=== PATIENT | male | born 1940 | race Caucasian/White ===

== ENCOUNTER → 2017-06-06 | Outpatient (CLI) | payer MEDICARE, BC ==
[2017-06-06 15:40] LABS: ADD MAN DIFF? NO
[2017-06-06 15:42] LABS: BASO # 0.1 x10^3/uL (0.0-0.2); BASO % 1 % (0-3); EOS # 0.4 x10^3/uL (0.0-0.7); EOS % 5 % (0-3); HEMATOCRIT 44.2 % (39.0-53.0); HEMOGLOBIN 14.8 g/dL (13.0-17.5); LYMPH # 2.5 x10^3/uL (1.0-4.8); LYMPH % 37 % (24-48); MEAN CORPUSCULAR HEMOGLOBIN 30 pg (25-35); MEAN CORPUSCULAR HGB CONC 34 g/dL (31-37); MEAN CORPUSCULAR VOLUME 89 fL (79-100); MONO # 1.1 x10^3/uL (0.0-1.1); MONO % 16 % (0-9); NEUT # 2.8 x10^3uL (1.8-7.7); NEUT % 41 % (31-73); PLATELET COUNT 151 x10^3/uL (140-400); RED BLOOD COUNT 4.97 x10^6/uL (4.30-5.70); RED CELL DISTRIBUTION WIDTH 14.3 % (11.5-14.5); WHITE BLOOD COUNT 6.8 x10^3/uL (4.0-11.0)
[2017-06-06 16:11] LABS: ALBUMIN 3.5 g/dL (3.4-5.0); ALBUMIN/GLOBULIN RATIO 0.9 (1.0-1.7); ALK PHOS 51 U/L (46-116); ALT (SGPT) 30 U/L (16-63); ANION GAP 11 (6-14); AST (SGOT) 20 U/L (15-37); BLOOD UREA NITROGEN 17 mg/dL (8-26); BUN/CREATININE RATIO 17 (6-20); CALCIUM 9.1 mg/dL (8.5-10.1); CARBON DIOXIDE 26 mmol/L (21-32); CHLORIDE 103 mmol/L (98-107); GFR 72.8; GLUCOSE 146 mg/dL (70-99); POTASSIUM 4.1 mmol/L (3.5-5.1); SODIUM 140 mmol/L (136-145); TOTAL BILIRUBIN 0.5 mg/dL (0.2-1.0); TOTAL PROTEIN 7.4 g/dL (6.4-8.2)
[2017-06-07 03:15] LABS: MRSA BY PCR Negative (Negative)
[2017-06-08 02:18] LABS: HEMOGLOBIN A1C 6.2 % (4.8-5.6)
== END | disposition home or self-care (01) ==
LOC: SURGPAT 13:29
DX: Z01.818 Encounter for other preprocedural examination (principal); I10 Essential (primary) hypertension
CPT/HCPCS: 36415; 80053; 83036; 85025; 87641; 93005

== ENCOUNTER 2017-06-20 07:28 | Observation (INO) | payer MEDICARE, BC ==
[2017-06-13] MEDS: BACITRACIN 50,000 UNIT in IV NORMAL SALINE 1000ML BAG 1,000 ML IRR (06:00)
[~2017-06-20 07:28] MED LIST: HYDROmorphone 2 MG/ML VIAL IV; IV RINGERS,LACTATED 1000ML 1,000 ML IV; LIDOCAINE 1% PF 2 ML VIAL. ID; MORPHINE SULFATE 2 MG/ML DISP.SYRIN. IV; PROCHLORPERAZINE 10 MG/2 ML VIAL. IV; ceFAZolin 2GM PREMIX 2 GM/50 ML BAG IV; fentaNYL PF VIAL 100 MCG/2 ML VIAL IV
[2017-06-20] MEDS: IV RINGERS,LACTATED 1000ML 1,000 ML IV ×2 (08:20)
[2017-06-20] MEDS ORDERED: MINERAL OIL/PETROLATUM,WHITE OPHTH OINT 3.5GM TUBE. ×2 (08:27)
[2017-06-20] MEDS ORDERED: DEXAMETHASONE SOD PHOS 20 MG/5 ML VIAL. ×2 (08:27)
[2017-06-20] MEDS ORDERED: REMIFENTANIL 2 MG VIAL. IV ×2 (08:27)
[2017-06-20] MEDS ORDERED: ONDANSETRON PF 4 MG/2 ML VIAL. ×2 (08:27)
[2017-06-20] MEDS ORDERED: MIDAZOLAM HCL/PF 2 MG/2 ML VIAL. ×2 (08:27)
[2017-06-20] MEDS ORDERED: fentaNYL PF VIAL 250 MCG/5 ML VIAL ×2 (08:27)
[2017-06-20] MEDS ORDERED: PROPOFOL 0 ML IV ×2 (08:27)
[2017-06-20] MEDS ORDERED: LIDOCAINE 2% PF Vial for OR 5 ML VIAL. ×2 (08:27)
[2017-06-20] MEDS ORDERED: PROPOFOL 20 ML IV ×2 (08:28)
[2017-06-20] MEDS ORDERED: DESFLURANE > 120 MINUTES IH ×2 (08:28)
[2017-06-20] MEDS ORDERED: ROCURONIUM 50 MG/5 ML VIAL. ×2 (08:30)
[2017-06-20] MEDS ORDERED: 0.9 % SODIUM CHLORIDE 50 ML VIAL. IJ ×4 (08:32→11:30)
[2017-06-20] MEDS ORDERED: ePHEDrine PF IN SALINE 50 MG/5 ML DISP.SYRIN IV (08:59)
[2017-06-20] MEDS: THROMBIN TOPICAL 20,000 UNIT SPRAY.SYRN KIT TP ×2 (09:41)
[2017-06-20] MEDS: BACITRACIN 50,000 UNIT in IV NORMAL SALINE 1000ML BAG 1,000 ML IRR (09:41)
[2017-06-20] MEDS: BUPIVAC MPF-EPI 0.75%-1:200000 30 ML VIAL. ×2 (09:41)
[2017-06-20] MEDS: KETOROLAC 60 MG/2 ML INJ FOR OR. ×2 (09:41)
[2017-06-20] MEDS: GELATIN SPONGE SIZE 100. ×2 (09:41)
[2017-06-20] MEDS ORDERED: PHENYLEPHRINE 10 MG/ML VIAL. ×4 (09:45)
[2017-06-20] MEDS ORDERED: PHENYLEPHRINE in 0.9% NACL PF 1 MG/10 ML SYRINGE. IV (09:45)
[2017-06-20] MEDS ORDERED: PROPOFOL 50 ML IV ×4 (11:20→11:29)
[2017-06-20] MEDS ORDERED: NEOSTIGMINE METHYLSULFATE 5 MG/5 ML SYRINGE. ×2 (11:30)
[2017-06-20] MEDS ORDERED: GLYCOPYRROLATE 1 MG/5 ML VIAL. ×2 (11:30)
[2017-06-20] MEDS ORDERED: ONDANSETRON PF 4 MG/2 ML VIAL. IV ×2 (11:45)
[2017-06-20] MEDS ORDERED: CALCIUM CARBONATE 500 MG TAB.CHEW PO ×2 (11:45)
[2017-06-20] MEDS ORDERED: ACETAMINOPHEN 325 MG TABLET. PO ×2 (11:45)
[2017-06-20] MEDS ORDERED: MAGNESIUM HYDROXIDE 2,400 MG/30 ML ORAL.SUSP. PO ×2 (11:45)
[2017-06-20] MEDS ORDERED: 0.9 % SODIUM CHLORIDE 10 ML DISP.SYRIN. IV ×2 (11:45)
[2017-06-20] MEDS ORDERED: fentaNYL PF VIAL 100 MCG/2 ML VIAL IV ×2 (11:45)
[2017-06-20] MEDS ORDERED: MAG HYDROX/ALUMINUM HYD/SIMETH 30 ML ORAL.SUSP PO ×2 (11:45)
[2017-06-20] MEDS ORDERED: diphenhydrAMINE 50 MG/ML VIAL IV ×2 (11:45)
[2017-06-20] MEDS ORDERED: diphenhydrAMINE HCL 25 MG CAPSULE PO ×2 (11:45)
[2017-06-20] MEDS: fentaNYL PF VIAL 100 MCG/2 ML VIAL IV ×6 (12:02→13:37)
[2017-06-20] MEDS: MORPHINE SULFATE 2 MG/ML DISP.SYRIN. IV ×4 (12:46→12:53)
[2017-06-20] MEDS: GABAPENTIN 300 MG CAPSULE. PO ×4 (13:35→20:39)
[2017-06-20] MEDS: POTASSIUM CL 20MEQ D5-0.45NACL 1,000 ML IV ×2 (13:35)
[2017-06-20] MEDS: METHOCARBAMOL 750 MG TABLET PO ×4 (13:35→20:40)
[2017-06-20] MEDS: HYDROcodone/APAP 7.5/325MG 1 TAB TABLET PO ×4 (14:27→23:49)
[2017-06-20] MEDS: METOPROLOL TART IMMED RELEASE 25 MG TABLET. PO ×2 (20:39)
[2017-06-20] MEDS: DOCUSATE SODIUM 100 MG CAPSULE. PO ×2 (20:39)
[2017-06-20] MEDS: LOSARTAN POTASSIUM 50 MG TABLET. PO ×2 (20:40)
[2017-06-21] MEDS: POTASSIUM CL 20MEQ D5-0.45NACL 1,000 ML IV ×4 (04:20→17:40)
[2017-06-21] MEDS: HYDROcodone/APAP 7.5/325MG 1 TAB TABLET PO ×2 (05:42)
[2017-06-21] MEDS: GABAPENTIN 300 MG CAPSULE. PO ×6 (07:13→21:03)
[2017-06-21] MEDS: DOCUSATE SODIUM 100 MG CAPSULE. PO ×4 (07:13→21:04)
[2017-06-21] MEDS: METHOCARBAMOL 750 MG TABLET PO ×6 (07:14→21:04)
[2017-06-21] MEDS: MULTIVITAMIN with MINERAL TABLET. PO ×2 (08:30)
[2017-06-21] MEDS: ASPIRIN ENTERIC COATED 81 MG TABLET.DR. PO ×2 (08:30)
[2017-06-21] MEDS: ATORVASTATIN CALCIUM 10 MG TABLET. PO ×2 (08:30)
[2017-06-21] MEDS: OMEGA-3 FATTY ACIDS/FISH OIL 1,000 MG CAPSULE. PO ×2 (08:30)
[2017-06-21] MEDS: DONEPEZIL HCL 10 MG TABLET. PO ×2 (08:30)
[2017-06-21] MEDS: METOPROLOL TART IMMED RELEASE 25 MG TABLET. PO ×4 (08:32→21:03)
[2017-06-21] MEDS ORDERED: oxyCODONE/APAP 5/325 1 TAB TABLET PO ×2 (10:00)
[2017-06-21] MEDS: DEXAMETHASONE SOD PHOS 4 MG/ML VIAL IV ×6 (10:00→23:38)
[2017-06-21] MEDS: LOSARTAN POTASSIUM 50 MG TABLET. PO ×4 (10:01→21:03)
[2017-06-21] MEDS: oxyCODONE/APAP 5/325 1 TAB TABLET PO ×6 (12:35→23:39)
[2017-06-22] MEDS: DEXAMETHASONE SOD PHOS 4 MG/ML VIAL IV ×2 (06:14)
[2017-06-22] MEDS: POTASSIUM CL 20MEQ D5-0.45NACL 1,000 ML IV ×2 (06:58)
[2017-06-22] MEDS: OMEGA-3 FATTY ACIDS/FISH OIL 1,000 MG CAPSULE. PO ×2 (08:55)
[2017-06-22] MEDS: DOCUSATE SODIUM 100 MG CAPSULE. PO ×2 (08:55)
[2017-06-22] MEDS: DONEPEZIL HCL 10 MG TABLET. PO ×2 (08:55)
[2017-06-22] MEDS: GABAPENTIN 300 MG CAPSULE. PO ×4 (08:55→13:14)
[2017-06-22] MEDS: ASPIRIN ENTERIC COATED 81 MG TABLET.DR. PO ×2 (08:55)
[2017-06-22] MEDS: METHOCARBAMOL 750 MG TABLET PO ×4 (08:55→13:14)
[2017-06-22] MEDS: MULTIVITAMIN with MINERAL TABLET. PO ×2 (08:55)
[2017-06-22] MEDS: ATORVASTATIN CALCIUM 10 MG TABLET. PO ×2 (08:56)
[2017-06-22] MEDS: METOPROLOL TART IMMED RELEASE 25 MG TABLET. PO ×2 (08:56)
[2017-06-22] MEDS: LOSARTAN POTASSIUM 50 MG TABLET. PO ×2 (08:57)
[2017-06-22] MEDS: oxyCODONE/APAP 5/325 1 TAB TABLET PO ×2 (13:15)
== END 2017-06-22 14:48 | disposition home or self-care (01) ==
LOC: SURG 07:28 → 4 SOUTHEST 11:38
DX: M51.26 Other intervertebral disc displacement, lumbar region (principal); Z82.49 Family history of ischemic heart disease and other diseases of the circulatory system; Z86.73 Personal history of transient ischemic attack (TIA), and cerebral infarction without residual deficits
CPT/HCPCS: 63047; 76000; 88304; 96374; 96375; 96376; 97110-GP; 97116-GP; 97162-GP; 97530-GP; G0378; G0379; G8978-CK-GP; G8979-CJ-GP; G8980-CI-GP; J0690; J1100; J1885; J2250; J2270; J2370; J2405; J2704; J2710; J3010; J3490; J7030; J7120